=== PATIENT | male | born 1965 | race Two or more races ===

== ENCOUNTER 2020-05-03 11:22 | Inpatient (IN) | payer BC, OTHER ==
[~2020-05-03] VITALS: Ht 175.3 cm; Wt 75.1 kg
[2020-05-03 12:51] LABS: Basophils # (auto) 0 10 ^3/uL (0-0.2); Basophils % (auto) 0.2 % (0.0-2.0); Eosinophils # (auto) 0.3 10 ^3/uL (0-0.8); Eosinophils % (auto) 4.5 % (0.0-7.0); Hematocrit 43.4 % (41.0-53.0); Hemoglobin 14.8 g/dL (13.5-17.5); Lymphocytes # (auto) 1.3 10 ^3/uL (0.4-5.4); Lymphocytes % (auto) 21.9 % (10.0-50.0); Mean Corpuscular Hemoglobin 31.1 pg (28.0-32.0); Mean Corpuscular Hgb Conc. 34.1 g/dL (32.0-36.0); Mean Corpuscular Volume 91.1 fL (80.0-100.0); Monocytes # (auto) 0.8 10 ^3/uL (0-1.3); Monocytes % (auto) 12.5 % (0.0-12.0); Neutrophils # (auto) 3.7 10 ^3/uL (1.6-8.6); Neutrophils % (auto) 60.9 % (37.0-80.0); Nucleated Red Blood Cells % 0.2 %; Platelet Count (auto) 216 10^3/uL (140-450); Red Blood Cells 4.76 10^6/uL (4.5-5.90); Red Cell Distribution Width 12.7 % (11.8-14.3); White Blood Cell 6.1 10^3/uL (4.4-10.8)
[2020-05-03 12:59] LABS: Urine WBC None Seen /hpf (0 - 3)
[2020-05-03] MEDS ORDERED: SODIUM CHLORIDE 0.9% 1,000 ML IV ONE ×2 (13:00→13:30)
[2020-05-03 13:07] LABS: Albumin 3.8 g/dL (3.4-5.0); Calcium 9.7 mg/dL (8.5-10.1); Magnesium 2.2 mg/dL (1.6-2.6); Potassium 4.3 mmol/L (3.5-5.1)
[2020-05-03 13:13] LABS: BUN/Creatinine Ratio 12.9; Bilirubin, Total 0.8 mg/dL (0.2-1.0); Total Protein 7.6 g/dL (6.4-8.2)
[2020-05-03 13:33] LABS: Urine Bacteria NONE SEEN /hpf (None Seen); Urine Blood Negative /uL (Negative); Urine Specific Gravity 1.016 (1.001-1.035)
[2020-05-03] MEDS ORDERED: MORPHINE SULF INJ 2 MG/ML SYRINGE 1ML IV PRN (14:00)
[2020-05-03] MEDS ORDERED: NITROGLYCERIN 0.4 MG SL TAB SL PRN (14:00)
[2020-05-03] MEDS ORDERED: metroNIDAZOLE 500MG/100ML 100 ML IV ONE (14:30)
[2020-05-03] MEDS ORDERED: ONDANSETRON HCL 4 MG/2 ML VIAL IV PRN (14:30)
[2020-05-03] MEDS ORDERED: PANTOPRAZOLE 40 MG/10 ML VIAL INJ IV ONE (14:30)
[2020-05-03] MEDS ORDERED: SIMETHICONE 80 MG CHEWABLE TABLET PO PRN (14:30)
[2020-05-03] MEDS ORDERED: levoFLOXacin 500MG 100 ML IV ONE (14:30)
[2020-05-03] MEDS: SODIUM CHLORIDE 0.9% 1,000 ML IV SCH (15:24)
[2020-05-03 16:55] VITALS: BP 122/85
[2020-05-03] MEDS: metroNIDAZOLE 500MG/100ML 100 ML IV SCH (21:56)
[2020-05-03 22:00] VITALS: BP 128/82
[2020-05-04] MEDS: SODIUM CHLORIDE 0.9% 1,000 ML IV SCH ×2 (00:30→09:56)
[2020-05-04 05:00] VITALS: BP 128/82
[2020-05-04] MEDS: metroNIDAZOLE 500MG/100ML 100 ML IV SCH (06:07)
[2020-05-04 08:00] VITALS: BP 130/84
[2020-05-04 08:45] VITALS: BP 130/84
[2020-05-04] MEDS ORDERED: levoFLOXacin 500MG 100 ML IV SCH (10:00)
[2020-05-04] MEDS ORDERED: PANTOPRAZOLE 40 MG/10 ML VIAL INJ IV SCH (10:00)
== END 2020-05-04 12:20 | disposition home or self-care (01) | DRG 392 ==
LOC: ER 11:22 → WEST WING 11:23
PROVIDERS: ADMIT Internal Medicine; ATTEND Internal Medicine
DX: K52.9 Noninfective gastroenteritis and colitis, unspecified (principal); K56.600 Partial intestinal obstruction, unspecified as to cause
CPT/HCPCS: 36415; 74018; 74176; 76705; 80053; 81001; 82150; 83690; 83735; 85025; 96360; C9113; G0378; J1956; J3490

== ENCOUNTER 2020-08-15 14:27 | Emergency (ER) | payer BC ==
[~2020-08-15] VITALS: Ht 182.9 cm; Wt 88.5 kg
[2020-08-15] MEDS ORDERED: EZ PAQUE SUSP 12OZ BTL ONE (14:55)
[2020-08-15 15:06] LABS: Basophils # (auto) 0.1 10 ^3/uL (0-0.2); Basophils % (auto) 1.2 % (0.0-2.0); Eosinophils # (auto) 0.2 10 ^3/uL (0-0.8); Eosinophils % (auto) 4.2 % (0.0-7.0); Hematocrit 41.8 % (41.0-53.0); Lymphocytes # (auto) 1.5 10 ^3/uL (0.4-5.4); Lymphocytes % (auto) 33.5 % (10.0-50.0); Mean Corpuscular Hgb Conc. 35.8 g/dL (32.0-36.0); Mean Corpuscular Volume 89.5 fL (80.0-100.0); Monocytes # (auto) 0.4 10 ^3/uL (0-1.3); Monocytes % (auto) 9.4 % (0.0-12.0); Neutrophils # (auto) 2.4 10 ^3/uL (1.6-8.6); Neutrophils % (auto) 51.7 % (37.0-80.0); Nucleated Red Blood Cells % 0.1 %; Platelet Count (auto) 191 10^3/uL (140-450); Red Blood Cells 4.67 10^6/uL (4.5-5.90); Red Cell Distribution Width 12.5 % (11.8-14.3); White Blood Cell 4.6 10^3/uL (4.4-10.8)
[2020-08-15 15:29] LABS: Albumin 4.1 g/dL (3.4-5.0); Anion Gap 6 (5-15); BUN/Creatinine Ratio 15.4; Blood Urea Nitrogen 16 mg/dL (7-18); Calcium 9.2 mg/dL (8.5-10.1); Carbon Dioxide 30 mmol/L (21-32); Chloride 103 mmol/L (98-107); GFR African American 95 mL/min; GFR Non-African American 79 mL/min; Glucose 90 mg/dL (74-106); Sodium 139 mmol/L (136-145)
[2020-08-15 15:36] LABS: CRP High Sensitivity 0.07 mg/dL (< 0.3)
[2020-08-15 16:00] LABS: Alanine Aminotransferase 36 U/L (16-61); Alkaline Phosphatase 75 U/L (45-117); Aspartate Aminotransferase 27 U/L (15-37); Bilirubin, Total 0.8 mg/dL (0.2-1.0); Total Protein 7.8 g/dL (6.4-8.2)
[2020-08-15 16:01] VITALS: BP 129/83
== END 2020-08-15 16:25 | disposition home or self-care (01) ==
LOC: ER 14:27
DX: R10.13 Epigastric pain (principal)
CPT/HCPCS: 36415; 74250; 80053; 82784; 83516; 84484; 85025; 85049; 85652; 86141; 86255